=== PATIENT | male | born 1995 | race Asian ===

== ENCOUNTER 2019-09-25 11:39 | Emergency (ER) | payer MEDICAID ==
[~2019-09-25] VITALS: Ht 172.7 cm; Wt 75.0 kg
[2019-09-25 11:40] VITALS: BP 118/72
== END 2019-09-25 12:54 | disposition home or self-care (01) ==
LOC: EMS 11:43
DX: S80.211A Abrasion, right knee, initial encounter (principal); J45.909 Unspecified asthma, uncomplicated; F17.210 Nicotine dependence, cigarettes, uncomplicated; F12.90 Cannabis use, unspecified, uncomplicated; W05.1XXA Fall from non-moving nonmotorized scooter, initial encounter; Y93.55 Activity, bike riding; Y92.89 Other specified places as the place of occurrence of the external cause; Y99.8 Other external cause status
CPT/HCPCS: 99406